=== PATIENT | male | born 1960 | race Two or more races ===

== ENCOUNTER 2024-01-11 20:26 | Emergency (ER) | payer OTHER ==
[~2024-01-11] VITALS: Ht 167.6 cm; Wt 101.7 kg
[2024-01-11 21:20] VITALS: BP 176/90; PULSE 88; RESP 18; TEMP 98.9; O2SAT 95
[2024-01-11] MEDS ORDERED: CLIN1CAP70 PO (21:41)
[2024-01-11] MEDS ORDERED: ACET500T58 PO (21:41)
[2024-01-11] MEDS: ACETAMINOPHEN/CODEINE#3 (300/30mg) TAB PO ONE (22:00)
[2024-01-11] MEDS: ONDANSETRON ODT 4 MG TAB PO ONE (22:00)
[2024-01-11] MEDS: cefTRIAXone SOD 1,000 MG VL IM ONE (22:01)
[2024-01-11] MEDS: TETANUS-DIPTH-ACEL PERTUSSIS 0.5ML SYR Tdap IM ONE (22:26)
== END 2024-01-11 23:17 | disposition home or self-care (01) ==
LOC: ER 20:26
DX: L03.012 Cellulitis of left finger (principal); I10 Essential (primary) hypertension; I25.2 Old myocardial infarction; F17.210 Nicotine dependence, cigarettes, uncomplicated; Z98.890 Other specified postprocedural states
CPT/HCPCS: 90471; 90715; 96372; 99284; J0696; Q0162